=== PATIENT | female | born 2000 | race Caucasian/White ===

== ENCOUNTER → 2021-09-16 10:59 | Outpatient (BNVA) | payer BC, MEDICAID, SELFPAY | PROVIDERS: PCP Family Medicine; Visit Provider Family Medicine | DX: Z51.81 Encounter for therapeutic drug level monitoring (principal); Z68.42 Body mass index [BMI] 45.0-49.9, adult; Z83.3 Family history of diabetes mellitus; Z13.1 Encounter for screening for diabetes mellitus; R03.0 Elevated blood-pressure reading, without diagnosis of hypertension; F31.9 Bipolar disorder, unspecified | CPT/HCPCS: 80053; 80061; 83036; 84443 ==

== ENCOUNTER → 2021-10-29 10:27 | Outpatient (BNVA) | payer BC, MEDICAID, SELFPAY | PROVIDERS: PCP Family Medicine; Visit Provider Emergency Medicine | DX: Z32.02 Encounter for pregnancy test, result negative (principal); M43.6 Torticollis | CPT/HCPCS: 81025 ==

== ENCOUNTER → 2021-12-07 11:20 | Outpatient (BNVA) | payer BC, MEDICAID, SELFPAY | PROVIDERS: PCP Family Medicine; Visit Provider Family Medicine | DX: M54.2 Cervicalgia (principal); G89.29 Other chronic pain; F31.9 Bipolar disorder, unspecified; F51.01 Primary insomnia; J45.990 Exercise induced bronchospasm | CPT/HCPCS: 72040 ==

== ENCOUNTER 2022-09-09 09:45 | Outpatient (CLI) | payer BC, MEDICAID, SELFPAY ==
--- NOTE | 2022-09-09 10:00 | CT_ITS ---
WS: [id number] CT SINUSES TECHNIQUE: Noncontrast CT of the paranasal sinuses with coronal and sagittal reformatted images. CLINICAL INFORMATION: recurrent sinusitis COMPARISON: None. DLP: 363.[address] scans at [facility] use at least one of these dose optimization techniques: automated e xposure control; mA and/or kV adjustment per patient size (includes targeted exams where dose is matc hed to clinical indication); or iterative reconstruction. FINDINGS: Mild RIGHT to LEFT nasal septal deviation measuring 3 mm. Small leftward directed spur. Retention cys ts or polyps in the RIGHT maxillary sinus the largest 2.1 x 1.5 cm. Mild mucosal thickening LEFT maxi llary sinus with a tiny retention cyst. Frontal sinuses are well aerated. Ethmoid air cells well aera adán. Frontal ethmoidal recesses are patent. Sphenoid sinuses are patent. Sphenoid ostia are patent. Mastoid air cells well aerated. Normal posterior nasopharynx. Normal parapharyngeal fat. CT/CT sinus wo con* [id number] IMPRESSION: 1. Mild RIGHT to LEFT nasal septal deviation measuring 3 mm. 2. Retention cysts or polyps in the RIGHT maxillary sinus largest measuring 2. 1x 1.5 CM. 3. Trace mucosal thickening LEFT maxillary sinus with small retention cyst or polyp measuring 8 mm. 4. Paranasal sinuses are otherwise well aerated. 5. Mastoid air cells well aerated. 6. No other remarkable findings.
== END 2022-09-09 09:46 | disposition home or self-care (01) ==
PROVIDERS: PCP Family Medicine; Visit Provider Family Medicine
DX: J32.9 Chronic sinusitis, unspecified (principal); J34.2 Deviated nasal septum
CPT/HCPCS: 70486

== ENCOUNTER → 2022-10-19 08:05 | Outpatient (BNVA) | payer BC, MEDICAID, SELFPAY | PROVIDERS: PCP Family Medicine; Referring Provider Nurse Practitioner; Visit Provider Podiatrist Foot & Ankle Surgery | DX: S93.602A Unspecified sprain of left foot, initial encounter (principal); W22.8XXA Striking against or struck by other objects, initial encounter | CPT/HCPCS: 73630 ==

== ENCOUNTER 2022-10-19 10:44 | Outpatient (CLI) | payer BC, MEDICAID, SELFPAY | END 2022-10-19 10:45 | disposition home or self-care (01) | LOC: SPT 10:45 | PROVIDERS: PCP Family Medicine; Visit Provider Podiatrist Foot & Ankle Surgery | DX: Z46.89 Encounter for fitting and adjustment of other specified devices (principal); S93.402D Sprain of unspecified ligament of left ankle, subsequent encounter; X58.XXXD Exposure to other specified factors, subsequent encounter | CPT/HCPCS: 97760; L4361 ==

== ENCOUNTER 2022-11-23 07:50 | Outpatient (CLI) | payer BC, MEDICAID, SELFPAY ==
--- NOTE | 2022-11-23 08:00 | MR_ITS ---
WS: [id number] EXAMINATION: MR ankle LT wo con* [id number] ORDER DATE: 11/23/2022 8:07 AM COMPARISON: None. HISTORY: Left ankle pain TECHNIQUE: Axial proton density fat sat, axial T1, sagittal proton density, sagittal STIR, coronal T2 fat sat, and coronal T1 sequences performed. FINDINGS: Plantar calcaneal spurring. Diffuse soft tissue edema lower leg and ankle worse about the medial mall eolus. No acute avulsion fractures. Normal talar dome. No evidence of avascular necrosis. Palpable ma rker overlying the medial malleolus. Deltoid ligament appears intact. Small amount of tenosynovitis in the underlying tibialis posterior, flexor digitorum longus, flexor h allucis longus. Extensor compartment tendons are intact. Trace tenosynovitis tibialis anterior. Tenos ynovitis along the peroneal tendon sheath. Splint tear involving the peroneal brevis. Tiny ankle effusion. Distal Achilles is normal. Trace fluid in the retrocalcaneal bursa. Normal talus and calcaneus. Normal talocalcaneal articulation. Normal cuboid. Normal talonavicular articulation. ATFL appears intact. MR/MR ankle LT wo con* [id number] IMPRESSION: 1. Diffuse soft tissue edema about the ankle worse about the medial malleolus. No underlying avulsion fractures. 2. Split tear involving the peroneal brevis. Tenosynovitis peroneal tendon she ath. 3. Small amount of tenosynovitis involving the flexor compartment tendons. 4. No visualized acute fractures. 5. Plantar calcaneal spurring. 6. No other acute findings.
== END 2022-11-23 07:51 | disposition home or self-care (01) ==
PROVIDERS: PCP Family Medicine; Visit Provider Podiatrist Foot & Ankle Surgery
DX: M77.32 Calcaneal spur, left foot (principal); R60.0 Localized edema; M65.9 Synovitis and tenosynovitis, unspecified
CPT/HCPCS: 73721

== ENCOUNTER 2022-12-09 07:20 | Outpatient (CLI) | payer BC, MEDICAID, SELFPAY ==
--- NOTE | 2022-12-09 07:30 | US_ITS ---
WS: [id number] Gallbladder and right upper quadrant ultrasound, 12/09/2022 Clinical Data: RUQ pain Comparison: None. Findings: The gallbladder shows no sludge or stone. The wall measures 0.2 cm with no pericholecystic fluid. The common bile duct is 0.4 cm and there are no intrahepatic ductal abnormalities. Liver shows no cysts, masses or dilated intrahepatic ducts. The pancreas is not obscured by overlying bowel gas and no cyst, pseudocyst, or evidence of pancreati tis is noted. Right kidney measures 12.3 cm and no cyst, masses or hydronephrosis can be seen. The aorta and inferior vena cava show no vascular abnormalities. US/US gall bladder [id number] Impression: Negative gallbladder and right upper quadrant ultrasound.
== END 2022-12-09 07:21 | disposition home or self-care (01) ==
LOC: RAD 07:20
PROVIDERS: PCP Family Medicine; Visit Provider Family Medicine
DX: R10.11 Right upper quadrant pain (principal)
CPT/HCPCS: 76705

== ENCOUNTER 2023-01-20 11:31 | Outpatient (CLI) | payer BC, MEDICAID, SELFPAY | END 2023-01-20 11:32 | disposition home or self-care (01) | LOC: SPT 11:32 | PROVIDERS: PCP Family Medicine; Visit Provider Podiatrist Foot & Ankle Surgery | DX: Z46.89 Encounter for fitting and adjustment of other specified devices (principal); M25.579 Pain in unspecified ankle and joints of unspecified foot | CPT/HCPCS: 97760; L1902 ==

== ENCOUNTER 2023-04-27 05:50 | Day surgery (SDC) | payer BC, MEDICAID, SELFPAY ==
[2023-04-27] VITALS (15 sets, daily range): BP systolic 121–158; BP diastolic 67–99; PULSE 85–109; RESP 12–22; TEMP 36.1–36.6; O2SAT 93–100; BMI 46.7
[2023-04-27] MEDS: acetaminophen 1,000 MG/100 ML PIGGYBACK 400 MG IV (06:21)
[2023-04-27] MEDS: gabapentin 300 mg Capsule PO (06:21)
[2023-04-27] MEDS: sodium chloride 0.9% 1,000 ML 30 ML IV (06:21)
--- NOTE | 2023-04-27 06:55 | P.HPUD_ITS ---
Surgery/Procedure H&P Update DATE OF PROCEDURE: April 27, 2023 DATE H&P PERFORMED: 04/15/23 H&P UPDATE INFORMATION: I have reviewed H&P completed within last 30 days, I have examined patient prior to procedure, No changes to prior documentation and H&P is in [facility] [place] date indicated PREOP DIAGNOSIS: Left peroneus brevis tear PLANNED PROCEDURE: Operation Date: 04/27/23 07:00 Proposed Procedures p Left ankle peroneus brevis tendon secondary repair 66869 ,S86.312A ,M65.872(Left) - iJm Huerta DPM s tenosynovectomy left ankle peroneus longus tendon 61389(Left) - Jim Huerta DPM
--- NOTE | 2023-04-27 06:55 | W.PM.OPSUD ---
Surgery/Procedure H&P Update DATE OF PROCEDURE: April 27, 2023 DATE H&P PERFORMED: 04/15/23 H&P UPDATE INFORMATION: I have reviewed H&P completed within last 30 days, I have examined patient prior to procedure, No changes to prior documentation and H&P is in [facility] on date indicated PREOP DIAGNOSIS: Left peroneus brevis tear PLANNED PROCEDURE: Operation Date: 04/27/23 07:00 Proposed Procedures p Left ankle peroneus brevis tendon secondary repair 68021 ,S86.312A ,M65.872(Left) - Jim Huerta DPM s tenosynovectomy left ankle peroneus longus tendon 95319(Left) - Jim Huerta DPM
--- NOTE | 2023-04-27 06:56 | P.ANESASSM_ITS ---
Pre-Anesthetic Assessment Height/Weight: Height 1.8 m Weight 151.953 kg Temp Pulse Resp BP Pulse Ox O2 Del Method 97.1 F L 96 17 128/86 100 Room Air 04/27/23 06:11 04/27/23 06:11 04/27/23 06:11 04/27/23 06:11 04/27/23 06:11 04/27/23 06:12 Preop Diagnosis: Left peroneus brevis tear Operation Date: 04/27/23 07:00 Proposed Procedures p Left ankle peroneus brevis tendon secondary repair 72999 ,S86.312A ,M65.872(Left) - Jim Huerta DPM s tenosynovectomy left ankle peroneus longus tendon 53622(Left) - Jim Huerta DPM Familial anesthetic complications: None Was Beta Belen taken within 24 hours: N/A Was Clonidine taken within 24 hours: N/A Last intake: Intake Last Liquid Date 04/26/23 Last Liquid Time 21:00 Last Solid Date 04/26/23 Last Solid Time 17:00 Social No alcohol and No tobacco Exam alert, oriented x 3, clear to auscultation bilaterally and regular rate & rhythm Airway Mallampati: Class III Dentition: full Metabolic Morbid Obesity Anesthetic Plan ASA status: 2 Anesthesia: General Other: pt declined pre-op block Risk of > 500 ml blood loss (7ml/kg in children): No Medications/Allergies Home Medications Medication Instructions Recorded Confirmed Last Taken Type fluticasone propionate 50 1 spray intranasal DAILY 90 days 08/16/22 04/26/23 04/26/23 Rx mcg/actuation nasal #48 grams spray,suspension (Flonase Allergy Relief) hydroxyzine HCl 25 mg tablet 25 mg PO QID PRN itching #30 tabs 10/28/22 04/26/23 04/26/23 Rx albuterol sulfate 90 mcg/actuation 1 inh inhalation QID PRN shortness 12/01/22 04/26/23 Unknown Rx breath activated powder inhaler of breath or wheezing #1 ea (ProAir RespiClick) levocetirizine 5 mg tablet (Xyzal) 5 mg PO DAILY #90 tabs 12/07/22 04/26/23 04/26/23 Rx fluoxetine 40 mg capsule 40 mg PO DAILY #60 caps 01/12/23 04/26/2304/26/23 Rx ASO Brace #1 ea 01/20/23 04/15/23 Unknown Rx budesonide-formoterol HFA 80 2 puff inhalation BID #10.2 grams 02/07/23 04/26/23 04/24/23 Rx mcg-4.5 mcg/actuation aerosol inhaler (Symbicort) liraglutide 0.6 mg/0.1 mL (18 mg/3 1.2 mg (0.2 mL) SUBCUT DAILY 30 02/23/23 04/26/23 04/26/23 Rx mL) subcutaneous pen injector days #9 mL (Victoza 3-Valentino) azelastine 137 mcg (0.1 %) nasal 137 mcg intranasal DAILY 03/25/23 04/26/23 04/26/23 History spray aerosol crutches #1 ea 04/15/23 04/15/23 Unknown Rx Allergies Allergy/AdvReac Type Severity Reaction Status Date / Time amoxicillin [From Augmentin] Allergy ALGY-Hives Verified 04/15/23 08:50 clavulanic acid Allergy ALGY-Hives Verified 04/15/23 08:50 [From Augmentin] clindamycin Allergy ALGY-Hives Verified 04/15/23 08:50 Current Medications Generic Name Dose Route Start Last Admin Trade Name Freq PRN Reason Stop Dose Admin Sodium Chloride 1,000 mls @ 30 mls/hr 04/27/23 06:00 04/27/23 06:21 Sodium Chloride 0.9% IV 04/28/23 05:59 30 mls/hr .Q24H ALVA Administration PFSH Anesthesia Medical History ADHD Allergic reaction Allergic urticaria Bipolar 1 disorder Failed trazodone Chronic sinusitis Surgical History History of nasal surgery Sinus surgery - done by Patricia Family History Family/Other Diabetes Denies family history of CAD (coronary artery disease) Clotting disorder Dementia Hyperlipidemia Psychiatric illness Chronic kidney disease (CKD) Anesthesia complication Bleeding disorder Lung disease Cancer Hypertension Stroke Social History Smoking and tobacco/nicotine status: never used tobacco/nicotine Alcohol intake: never Substance/Drug Use: never Lives independently: Yes Marital status: Single Current occupational status: unemployed Angelina/Adventism: [employer] angelina needs: No Agree to transfusion: Yes Female Reproductive History Spontaneous abortions: No Data Anesthesia Cardiac Studies: No Data to Display
[2023-04-27 07:01] LABS: OR HCG Qualitative Urine Negative (Negative)
[2023-04-27] MEDS: ceFAZolin 3,000 MG in sodium chloride 0.9% (100 ml) 100 ML 200 MG IV (07:10)
[2023-04-27] MEDS: BUPivacaine 0.5% INJ 30 mL INJECTION (07:25)
[2023-04-27] MEDS: BUPivacaine 0.5% INJ 30 mL 20 ML INJECTION (08:16)
--- NOTE | 2023-04-27 08:35 | P.BOP_ITS ---
Date of procedure: 04/27/2023 Surgeon name: Neal BynumPZabrina Stationary Steam Engineer(s) name(s): None Procedure(s) performed: Repair of left peroneus brevis tendon, tenosynovectomy left peroneus longus tendon Description of findings: Split tear peroneus brevis tendon with significant tenosynovitis surrounding peroneus longus Estimated blood loss: 10 cc Tourniquet time: Specimen(s) removed: None Post-operative diagnosis: Peroneus brevis tendon tear
--- NOTE | 2023-04-27 08:37 | P.OP_ITS ---
Operative Report Date of procedure: April 27, 2023 Pre-op diagnosis: Left ankle peroneus brevis tendon tear Post-op diagnosis: Same Post-op findings: Split tear of left ankle peroneus brevis tendon with significant tenosynovitis running the peroneus longus tendon Procedure done: 1. Repair left ankle peroneus brevis tendon tear CPT 25848 2. Tenosynovectomy left ankle peroneus longus tendon CPT 43495 Implants: Tendon wrap from [employer] Surgeon: Jim Huerta DPM Estimated blood loss: 10 cc Complications: None Findings: See above Procedure: Patient is a 22-year-old female that has a history of peroneus brevis tendon tear left ankle. The patient has had the aforementioned chief complaint for some time. Conservative treatment measures have been attempted and the patient has opted for surgical intervention at this time. A lengthy discussion regarding the procedure, including risks and complications has been had with the patient and is noted in the recent clinic note. Written and verbal consent have been obtained. All patient questions have been answered to the patient?s satisfaction. No written or verbal guarantees have been given or implied. The patient has been NPO since midnight. The history has been reviewed and the history and physical is current. The signed consent was confirmed and placed in the patient chart. Patient imaging has been reviewed and is consistent with the diagnosis. Under mild sedation, the patient was brought into the operating room and placed on the table in the supine position. IV antibiotics were given by the anesthesia team as preoperative surgical prophylaxis. General sedation was then performed by the anesthesiateam. A pneumatic tourniquet was then placed about the left thigh. The operative extremity was then prepped and draped in the usual fashion. The extremity was then elevated and exsanguinated before the tourniquet was inflated to 325 mmHg. After inflation, the following procedure was then performed. Attention was directed to the lateral aspect of the left ankle where an 8 cm incision was made overlying the peroneal tendons along the course. Dissection was carried down to the level of the peroneal tendon sheath which was incised. There was noted to be extravasation of tenosynovitis coming from the tendon sheath upon incising. The tendon sheath was opened to evaluate the peroneal tendons. The brevis was identified and was noted to have a split longitudinal tear of roughly 30% of the tendon girth. There is noted to be a significant amount of tenosynovectomy surrounding the peroneus longus tendon. No split tear was noted of the peroneus longus tendon upon inspection. The degenerative portion of the peroneus brevis tendon was excised from the ankle and passed from the operative field. The tenosynovitis surrounding the peroneus longus tendon was excised using #15 blade and passed from the operative field. The remaining portions of the sheath appeared healthy and viable. Attention was directed the peroneus brevis tendon. Using #2 FiberWire this was retubularized in standard fashion. The site was then irrigated with copious amounts of sterile saline. The peroneal tendons were then wrapped with Tenowrap collagen wrap from [employer]. The tendon sheath was then closed using 2-0 Vicryl followed by subcuticular closure with 3-0 Vicryl and skin closure with 3-0 nylon in horizontal mattress fashion. The site was then anesthetized using 0.5% Marcaine plain. The tourniquet was let down and good hyperemic response was noted to all digits of the left foot. Hemostasis was noted to be achieved. The incision site was dressed with Xeroform, 4 x 4 gauze, Kerlix before being placed in a well-padded below the knee posterior splint. The patient tolerated the procedure and anesthesia well and without complication. The patient was transported from the operating room to the recovery room with vital signs stable and vascular status intact to all digits of the left foot. The patient was given both written and verbal instructions to remain nonweightbearing to the operative extremity, to keep dressings/splint clean, dry and intact and to take pain medication as directed. The patient will follow-up in the outpatient setting at their scheduled appointment. The patient was discharged with my personal number and was instructed to call if any questions or issues should arise. They were discharged home once anesthesia criteria was met.
[2023-04-27] MEDS: fentaNYL 50 mcg/mL INJ 2mL IVP (09:14)
--- NOTE | 2023-04-27 09:53 | ANES.PROC ---
Anesthesia Procedures Procedure/Date: 04/27/23 Nerve Block ^: Nerve Block 1: Main Anesthesia: general anesthesia Time Out Performed: Yes Consent: requested by attending/covering physician, from patient, from other, risks and benefits reviewed and patient agrees to proceed Nerve block location: popliteal (L) Anesthesia monitors applied: pulse oximetry, EKG, BP cuff and oxygen Nerve block position: supine Anesthetic Used: ropivicaine 0.5% (30 ml) and with decadron (4 mg) Ultrasound used to: recognize landmarks Nerve Stimulator Used?: No Interscalene/Femoral BLK: 4 stimuplex 21 g needle used for position and inplane approach, visualize local anesthetic spread and no vascular puncture identified Injection: neg aspiration of heme and paresthesia +/- Patient Tolerated Procedure: well and no complications Complications: none
--- NOTE | 2023-04-27 14:16 | ANE.PACU2 ---
Inpatient post-anesthesia follow up: Airway intact: Yes Vital signs: Temperature 97.0 F Pulse Rate 96 Respiratory Rate 17 Blood Pressure 145/82 Pulse Oximetry 95 Oxygen Delivery Me thod Room Air Oxygen Flow Rate 8 Fraction of Inspir ed Oxygen Hydration adequate: Yes Nausea and vomiting: No Pain level: 1 Mental status: Baseline
== END 2023-04-27 10:30 | disposition home or self-care (01) ==
PROVIDERS: PCP Family Medicine; Visit Provider Podiatrist Foot & Ankle Surgery
PROC: (CPT 27659; principal; 2023-04-27 07:00)
PROC: (CPT 27659; 2023-04-27 07:00)
DX: S86.312A Strain of muscle(s) and tendon(s) of peroneal muscle group at lower leg level, left leg, initial encounter (principal); X58.XXXA Exposure to other specified factors, initial encounter
CPT/HCPCS: 27659; 27680; 81025; 84703; C1713; C1762; J0131; J0690; J1100; J2250; J2405; J2704; J2795; J3010; J3490; J3535; J7030

== ENCOUNTER 2023-04-29 05:02 | Emergency (ER) | payer BC, MEDICAID, SELFPAY ==
[2023-04-29 05:10] VITALS: BP 167/84; PULSE 128; RESP 20; TEMP 36.9; O2SAT 100
--- NOTE | 2023-04-29 05:16 | ED_ITS ---
HPI - Fever General: Chief Complaint: Fever Stated Complaint: fever,congestion Time Seen by Provider: 04/29/23 05:03 Source: patient Mode of arrival: ambulatory Limitations: no limitations History of Present Illness: 22-year-old female who states she had an kle surgery 2 days ago he states that overnight she has been having severe sinus pain headaches had a fever 101. She had a lot of nasal congestion states she has had sinus infections in the past this feels similar she had no vomiting no diarrhea denies any pain in her leg. Associated symptoms: Reports headache(s), nasal congestion and sinus pain; Deny abdominal pain, chills, chest pain, diarrhea, nausea or vomiting Review of Systems Const: Denies: fever(s), chills, body aches or change in appetite ENMT: Reports: nasal congestion and sinus pain; Denies: throat pain or dental pain Card: Denies: chest pain Resp: Denies: dyspnea GI: Denies: abdominal pain, nausea, vomiting or diarrhea Musc: Denies: neck pain or back pain Skin/Breast: Denies: rash Neuro: Reports: headache(s) PFSH ED PFSH: Medical History Chronic sinusitis Allergic urticaria ADHD Bipolar 1 disorder Failed trazodone Allergic reaction Surgical History History of nasal surgery Sinus surgery - done by Patricia Family History Family/Other Diabetes Denies family history of CAD (coronary artery disease) Clotting disorder Dementia Hyperlipidemia Psychiatric illness Chronic kidney disease (CKD) Anesthesia complication Bleeding disorder Lung disease Cancer Hypertension Stroke Social History Smoking and tobacco/nicotine status: never used tobacco/nicotine Alcohol intake: never Substance/Drug Use: never Lives independently: Yes Marital status: Single Current occupational status: unemployed Angelina/Adventism: Spiritism Special angelina needs: No Agree to transfusion: Yes Female Reproductive History: Spontaneous abortions: No Physical Exam Const: COMMON NORMALS: no acute distress, patient oriented x3 and healthy appearing HENMT: COMMON NORMALS: normocephalic and atraumatic HEAD & SCALP: normocephalic and atraumatic MOUTH: Normal oral and palatal mucosa present THROAT: posterior oropharynx normal Eye: COMMON NORMALS: Equal, round and reactive pupils present and EOMs intact bilaterally PUPIL: Yes Equal, round and reactive pupils present Neck/C-Spine: COMMON NORMALS: full ROM and supple Chest: COMMONS NORMALS: normal inspection of the chest and normal palpation of entire chest wall Resp: COMMON NORMALS: normal respiratory effort, No retractions, No use of accessory muscles and clear to auscultation bilaterally AUSCULTATION: clear to auscultation bilaterally Cardio: COMMON NORMALS: regular rate, regular rhythm and No murmurs present (Cardio) RATE: regular rate RHYTHM: regular rhythm Extremity: COMMON NORMALS: normal to inspection and full ROM Neuro: COMMON NORMALS: patient oriented x3, moves all extremities and no focal motor deficits Psych: COMMON NORMALS: mental status grossly normal, Normal thought process present and cooperative THOUGHT PROCESS: Normal thought process present Skin: COMMON NORMALS: no rashes or lesions noted and no wounds GENERAL SKIN EXAM: no rashes or lesions noted Course Vital Signs: Vital signs: Vital Signs Temperature 98.4 F 04/29/23 05:10 Pulse Rate 128 H 04/29/23 05:10 Respiratory Rate 20 H 04/29/23 05:10 Blood Pressure 167/84 04/29/23 05:10 Pulse Oximetry 100 04/29/23 05:10 MDM - Fever Medical Decision Making Patient presents here with a likely sinus infection. I did recommend COVID and influenza swabs she refused all swabs. Patient is quite tachycardic here was going to draw blood work and give her IV fluids patient refused IV and blood work as well. She states that is what my sinusitis is treated and nothing else we will prescribe her Keflex because this time if she worsens she is return. No radiology studies performed this visit Discharge Plan Discharge Patient Disposition: Home Clinical Impression: Sinusitis Condition: Stable Prescriptions: New cephalexin 500 mg capsule 500 mg PO TID 7 Days Qty: 21 0RF No Action fluoxetine 40 mg capsule 40 mg PO DAILY Qty: 60 1RF (DME) ASO Brace See Rx Instructions .Route .MEDSUPPLY Qty: 1 0RF Rx Instructions: As directed fluticasone propionate [Flonase Allergy Relief] 50 mcg/actuation spray,suspension 1 spray intranasal DAILY 90 Days Qty: 48 0RF Rx Instructions: administer into each nostril ProAir RespiClick 90 mcg/actuation aerosol powdr breath activated 1 inh inhalation QID PRN (Reason: shortness of breath or wheezing) Qty: 1 3RF azelastine 137 mcg (0.1 %) aerosol,spray 137 mcg intranasal DAILY (DME) crutches See Rx Instructions .Route .MEDSUPPLY Qty: 1 0RF Rx Instructions: As directed hydroxyzine HCl 25 mg tablet 25 mg PO QID PRN (Reason: itching) Qty: 30 0RF levocetirizine [Xyzal] 5 mg tablet 5 mg PO DAILY Qty: 90 0RF budesonide-formoterol [Symbicort] 80-4.5 mcg/actuation HFA aerosol inhaler 2 puff inhalation BID Qty: 10.2 1RF Victoza 3-Valentino 0.6 mg/0.1 mL (18 mg/3 mL) pen injector 1.2 mg SUBCUT DAILY 30 Days Qty: 9 4RF ondansetron HCl 4 mg tablet 4 mg PO Q6H PRN (Reason: nausea and vomiting) Qty: 16 0RF hydrocodone-acetaminophen 5-325 mg tablet 1 tab PO Q6H PRN (Reason: pain) Qty: 28 0RF Rx Instructions: Take one tablet by mouth every 6 hours as needed for pain Discharge Orders: Discharge ED (Routine); Ordered 04/29/23 Ordered By: Delfin Mcallister Referrals: Richy Walker MD [Primary Care Provider] - 1-3 days Discharge Diet: Advance as tolerated Discharge Activity: Resume usual activity Patient Instructions: Sinusitis (ED) Coding Level of Care Code ED Accounts Receivable Coordinator for Sanjeev Lobo
[2023-04-29] MEDS: cephALEXin 500 mg Capsule PO (05:21)
[2023-04-29] MEDS: HYDROcodone-acetaminophen 5-325 mg Tablet 1 TAB PO (05:22)
[2023-04-29] MEDS: dexamethasone 10 mg/mL INJ IM (05:23)
[2023-04-29 05:42] VITALS: BP 135/83; PULSE 112; O2SAT 98
== END 2023-04-29 05:42 | disposition home or self-care (01) ==
PROVIDERS: Emergency Provider Emergency Medicine; PCP Family Medicine
DX: J32.9 Chronic sinusitis, unspecified (principal)
CPT/HCPCS: 96372; 99284; J1100

== ENCOUNTER → 2023-08-26 13:01 | Outpatient (BNVA) | payer BC, MEDICAID, SELFPAY | PROVIDERS: PCP Family Medicine; Visit Provider Emergency Medicine | DX: J02.9 Acute pharyngitis, unspecified (principal) | CPT/HCPCS: 87071; 87880 ==

== ENCOUNTER → 2023-11-29 15:35 | Outpatient (BNVA) | payer BC, MEDICAID, SELFPAY | PROVIDERS: PCP Family Medicine Adult Medicine; Visit Provider Orthopaedic Surgery | DX: M54.2 Cervicalgia (principal); M25.511 Pain in right shoulder; M25.512 Pain in left shoulder | CPT/HCPCS: 72050; 73030 ==

== ENCOUNTER → 2024-02-07 08:11 | Outpatient (BNVA) | payer MEDICARE, OTHER, BC, MEDICAID, SELFPAY | PROVIDERS: PCP Family Medicine Adult Medicine; Visit Provider Orthopaedic Surgery | DX: M54.50 Low back pain, unspecified (principal); M54.2 Cervicalgia; G89.29 Other chronic pain | CPT/HCPCS: 72050; 72110; 99213 ==

== ENCOUNTER 2024-03-28 06:51 | Outpatient (CLI) | payer BC, MEDICAID, SELFPAY ==
--- NOTE | 2024-03-28 07:15 | MR_ITS ---
WS: [id number] MRI CERVICAL SPINE NONCONTRAST TECHNIQUE: Sagittal T1, T2 and STIR imaging. Axial T2, gradient, and fiesta imaging. CLINICAL INFORMATION: M54.2 - Cervicalgia COMPARISON: None. FINDINGS: Straightening with slight reversal normal cervical lordosis. Shallow central protrusion C6-7 with a s mall annular fissure and indentation on the cervical cord with mild to moderate central canal stenosi s. C2-C3: Normal. C3-C4: Mild facet arthropathy. C4-C5: Mild disc osteophyte ridging. Mild LEFT greater than RIGHT bony foraminal narrowing. Spinal ca nal is patent. Mild facet arthropathy. C5-C6: Tiny central protrusion. Mild central canal stenosis. Mild RIGHT and no significant LEFT loni inal narrowing. Mild facet arthropathy. C6-C7: Central disc protrusion with indentation and slight flattening of the cervical cord with mild to moderate central canal stenosis. Mild bilateral bony foraminal narrowing. Mild facet arthropathy. C7-T1: Shallow central protrusion. Spinal canal and foramen are patent. Mild facet arthropathy. Visualized brain stem structures: Normal. Prevertebral soft tissues: Normal. MR/MR cervical spin wo con* [id number] IMPRESSION: 1. Straightening with slight reversal the normal cervical lordosis. 2. Central disc protrusion C6-7 with mild to moderate central canal stenosis a nd slight indentation on the cervical cord. 3. Mild bilateral C6-7 bony foraminal narrowing RIGHT greater than LEFT. 4. Small central protrusion C7-T1 with slight effacement of the ventral thecal sac. 5. Mild RIGHT C5-6 bony foraminal narrowing. Tiny central protrusion at this l evel with mild central canal stenosis.
== END 2024-03-28 06:52 | disposition home or self-care (01) ==
LOC: RAD 06:52
PROVIDERS: PCP Family Medicine Adult Medicine; Visit Provider Orthopaedic Surgery
DX: M50.20 Other cervical disc displacement, unspecified cervical region (principal); M99.61 Osseous and subluxation stenosis of intervertebral foramina of cervical region
CPT/HCPCS: 72141

== ENCOUNTER 2024-05-24 14:43 | Outpatient (CLI) | payer BC, MEDICAID, SELFPAY | END 2024-05-24 14:44 | disposition home or self-care (01) | LOC: SLEEP 14:44 | PROVIDERS: PCP Family Medicine Adult Medicine; Visit Provider Specialist | DX: G47.33 Obstructive sleep apnea (adult) (pediatric) (principal) | CPT/HCPCS: G0399 ==

== ENCOUNTER → 2024-06-05 15:14 | Outpatient (BNVA) | payer BC, MEDICAID, SELFPAY | PROVIDERS: Visit Provider Family Medicine | DX: J02.9 Acute pharyngitis, unspecified (principal) | CPT/HCPCS: 87071; 87880 ==

== ENCOUNTER → 2024-08-02 14:32 | Outpatient (BNVA) | payer BC, MEDICAID, SELFPAY | PROVIDERS: PCP Family Medicine; Visit Provider Orthopaedic Surgery | DX: M54.50 Low back pain, unspecified (principal); M54.6 Pain in thoracic spine | CPT/HCPCS: 72072; 72110 ==

== ENCOUNTER 2024-09-18 06:06 | Outpatient (CLI) | payer BC, MEDICAID, SELFPAY ==
--- NOTE | 2024-09-18 06:30 | MR_ITS ---
WS: [id number] MRI LUMBAR SPINE NONCONTRAST HISTORY: low back pain COMPARISON: None available. TECHNIQUE: Sagittal and axial multisequence imaging is submitted. C6-7 small central disc protrusion contacts the ventral cervical cord. Normal lumbar alignment with no compression fractures or marrow edema. Minimal disc space narrowing and desiccation. Schmorl's nodes at T12-L3. No acute fracture or marrow edema. Conus terminates normally at L1-2 disc level. L1-L2: Small central disc protrusion contacts the ventral thecal sac. Mild ligamentum flavum and facet arthritis. Mild central, subarticular recess and foraminal stenosis. L2-L3: Diffuse annular disc bulging with mild effacement of the ventral thecal sac. Minimal foraminal narrowing. L3-L4: Mild annular disc bulging. Shallow RIGHT foraminal disc protrusion. Moderate ligamentum flavum and facet arthritis. Mild bilateral subarticular recess and foraminal stenosis. L4-L5: Moderate ligamentum flavum and facet arthritis. No significant stenosis. L5-S1: Facet joint arthritis. Small central disc protrusion. Disc protrusion slightly contacts the LEFT S1 nerve root. Very slight central with bilateral subarticular recess and foraminal narrowing. MR/MR lumbar spine wo con* [id number] IMPRESSION: 1. No high-grade central or foraminal stenosis. 2. Multilevel facet joint arthritis and ligamentum flavum hypertrophy. 3. L1-2: Small central disc protrusion contacts the ventral thecal sac. Mild c entral, subarticular recess and foraminal stenosis. 4. L5-S1: Small central disc protrusion slightly contacts the LEFT S1 nerve ro ot. Very mild central, bilateral subarticular recess and foraminal stenosis. 5. L3-4: Shallow RIGHT foraminal disc protrusion. Mild foraminal and subarticu lar recess narrowing. 6. C6-7: Small central disc protrusion.
== END 2024-09-18 06:07 | disposition home or self-care (01) ==
PROVIDERS: PCP Family Medicine; Visit Provider Orthopaedic Surgery
DX: M47.896 Other spondylosis, lumbar region (principal); M24.28 Disorder of ligament, vertebrae; M51.26 Other intervertebral disc displacement, lumbar region; M48.061 Spinal stenosis, lumbar region without neurogenic claudication; M51.27 Other intervertebral disc displacement, lumbosacral region; M50.323 Other cervical disc degeneration at C6-C7 level; M51.44 Schmorl's nodes, thoracic region; M47.897 Other spondylosis, lumbosacral region
CPT/HCPCS: 72148

== ENCOUNTER → 2024-10-30 09:18 | Outpatient (BNVA) | payer BC, MEDICAID, SELFPAY | PROVIDERS: PCP Family Medicine; Visit Provider Orthopaedic Surgery | DX: M25.511 Pain in right shoulder (principal); G89.29 Other chronic pain | CPT/HCPCS: 73030 ==

== ENCOUNTER 2024-11-14 10:29 | Outpatient (CLI) | payer MEDICAID, SELFPAY ==
--- NOTE | 2024-11-14 11:00 | MR_ITS ---
WS: [id number] MRI RIGHT SHOULDER HISTORY: Right shoulder pain COMPARISON: None available. TECHNIQUE: Multiplanar sequences of the shoulder joint are submitted. No significant AC joint disease. No subacromial impingement. No fluid in the subacromial or subdeltoid bursa. No os acromion. Biceps tendon noted in the bicipital groove. Very poor definition of the biceps tendon due to body habitus. No rotator cuff muscle atrophy or edema. No tears are identified. No muscle retraction. No joint effusion. Minimal subchondral cystic changes along the posterior lateral humeral head. Labrum cannot be well visualized due to body habitus. Lobulated paralabral cyst associated with the spinoglenoid notch. Largest component measures 10 mm and there is a small tract extending towards the posterior inferior labrum. The labrum is not well enough visualized to confirm there is a labral tear. MR/MR shoulder RT wo con* [id number] IMPRESSION: 1. No shoulder abnormality identified. 2. No rotator cuff tendon tear. 3. Paralabral cyst measures 10 mm. There is a small fluid tract extending towa rds the posterior inferior labrum. Suspected labral tear. Quality of this exam is not sufficient to identify the labrum and confirmed labral tear.
--- NOTE | 2024-11-14 11:45 | MR_ITS ---
WS: [id number] MRI LEFT SHOULDER HISTORY: M25.512 - Pain in left shoulder COMPARISON: None available. TECHNIQUE: Multiplanar sequences of the shoulder joint are submitted. Study is compromised by body habitus. Mild AC joint arthritis. No subacromial subdeltoid fluid. No significant subacromial impingement. No os acromion. Normal position of the biceps tendon. Mild narrowing of the glenohumeral joint. Small subchondral cystic changes in the posterior lateral humeral head. No rotator cuff muscle atrophy or edema. No tendon tear or retraction. Quality of this examination is not sufficient to evaluate the labrum. Grossly no labral abnormality. MR/MR shoulder LT wo con* [id number] IMPRESSION: 1. Quality this examination is compromised by body habitus. 2. No rotator cuff tears are identified. No muscle atrophy or edema. 3. Mild AC joint arthritis. 4. Subchondral cystic changes posterior lateral humeral head.
== END 2024-11-14 10:30 | disposition home or self-care (01) ==
PROVIDERS: PCP Family Medicine; Visit Provider Orthopaedic Surgery
DX: M25.511 Pain in right shoulder (principal); M25.512 Pain in left shoulder
CPT/HCPCS: 73221

== ENCOUNTER → 2025-01-23 08:18 | Outpatient (BNVA) | payer MEDICAID, SELFPAY | PROVIDERS: PCP Family Medicine; Visit Provider Family Medicine | DX: Z79.899 Other long term (current) drug therapy (principal); E66.01 Morbid (severe) obesity due to excess calories; Z68.42 Body mass index [BMI] 45.0-49.9, adult; K21.9 Gastro-esophageal reflux disease without esophagitis; F32.1 Major depressive disorder, single episode, moderate | CPT/HCPCS: 80053; 80061; 82607; 83036; 84439; 84443; 85025 ==

== ENCOUNTER 2025-02-13 14:51 | Outpatient (CLI) | payer MEDICAID, SELFPAY ==
--- NOTE | 2025-02-13 14:58 | XRR_ITS ---
PROCEDURE INFORMATION: Exam: XR Left Ankle Exam date and time: 02/13/2025 3:10 PM Age: 24 years old Clinical indication: Injury or trauma; Fall; Blunt trauma; Prior surgery; Surgery date: 6+ months; Surgery type: Tendon repair on left ankle 2022; Additional info: Injury left ankle TECHNIQUE: Imaging protocol: Radiologic exam of the left ankle. Views: 3 or more views. COMPARISON: MR ankle LT wo con* [id number] 11/23/2022 8:22 AM FINDINGS: Bones/joints: No acute fractures. Plantar calcaneal spur. No dislocations. No significant osseous lesions. Soft tissue swelling about the lateral malleolus. Soft tissues: See Bones/joints finding. XR/XR ankle LT min 3V* [id number] IMPRESSION: 1. No acute fractures or malalignment. 2. Soft tissue swelling about the lateral malleolus.
--- NOTE | 2025-02-13 14:58 | XRR_ITS ---
PROCEDURE INFORMATION: Exam: XR Left Foot Exam date and time: 02/13/2025 3:10 PM Age: 24 years old Clinical indication: Injury or trauma; Blunt trauma; Prior surgery; Surgery date: 6+ months; Surgery type: Tendon repair on left ankle 2022; Fall on left foot today, limited mobility, pain in ankle and bruising/swelling; Additional info: Injury left foot TECHNIQUE: Imaging protocol: Radiologic exam of the left foot. Views: 3 or more views. COMPARISON: CR XR foot LT min 3V* [id number] 10/19/2022 8:07 AM FINDINGS: Bones/joints: No acute fractures. Plantar calcaneal spur. No dislocations. No significant osseous lesions. Soft tissues: No significant soft tissue abnormalities. XR/XR foot LT min 3V* [id number] IMPRESSION: No acute fractures or malalignment.
== END 2025-02-13 14:52 | disposition home or self-care (01) ==
LOC: RAD 14:54
PROVIDERS: PCP Family Medicine; Visit Provider Nurse Practitioner
DX: S99.922A Unspecified injury of left foot, initial encounter (principal); S99.912A Unspecified injury of left ankle, initial encounter; X58.XXXA Exposure to other specified factors, initial encounter; M25.472 Effusion, left ankle
CPT/HCPCS: 73610; 73630

== ENCOUNTER 2025-02-14 10:56 | Emergency (ER) | payer MEDICAID, SELFPAY ==
--- OUTSIDE RECORDS SUMMARY | 2021-12-16 03:00 | XMS_ITS | Continuity of Care Document ---
Author Organization [facility] Address [address] [id number] [address] Phone Care Team Providers Care Hazardous Materials Analyst Name Role Phone Mendoza Goddard DDS Unavailable Unavailabl e Medications Medication Instructions Dosage Effective Dates (start - stop) Status Comments chlorhexidine gluconate 0.12 % mouthwash place 15 milliliter by mouth (after meals), swish one minute then spit out as needed - Active Start on 3rd day after surgery, use salt/water first 3 days. clonazepam 1 mg tablet Take 1 (one) tablet 1 (one) hour prior to procedure. - Active ibuprofen 800 mg tablet take 1 tablet by oral route 3 times every day with food 800 MG - Active Anti-inflammat ory caused by Oral Surgery, Do not used more than 3000mg per day. hydrocodone 5 mg-acetaminophen 325 mg tablet take 1 tablet by oral route every 6 hours as needed for pain as needed 1.00 tablet - Active Procedures Procedure Date Non-Intravenous Conscious Sedation Removal Of Impacted Tooth Soft Tissue EDR Approval Note Non-Intravenous Conscious Sedation Surgical Removal Of Erupted Tooth Requir ing Elevat Surgical Removal Of Erupted Tooth Requir ing Elevat Surgical Removal Of Erupted Tooth Requir ing Elevat Surgical Removal Of Erupted Tooth Requir ing Elevat EDR Approval Note Consultation Diagnostic Service Provided By [place] EDR Approval Note Advance Directives Directive Yes / No Effective Date File Name No Information Encounters Encounter Description Practice Location Reason(s) For Visit Diagnoses Date Provider Providers Copied on Encounter [facility], [id number] [place], [place], [id number], [place] tel:[phone] [facility] No Information Rupesh Donaldson. [address] [place] [address], [address], [place]. tel:[phone] Referring Provider: Mendoza Goddard, [address] [place] [address], [address]. tel:[phone] [facility], [id number], [id number], [place] tel:[phone] [facility] No Information Rupesh Donaldson. [address] [place] [address], [address], [place]. tel:[phone] [facility], [id number], [id number], [place] tel:[phone] [facility] No Information Rupesh Donaldson. [address] [place] [address], [address], [place]. tel:[phone] Referring Provider: Mendoza Goddard, [address] [place] [address], [address]. tel:[phone] [facility], [id number], [id number], [place] tel:[phone] [facility] No Information Rupesh Donaldson. [address] [place] [address], [address], [place]. tel:[phone] [facility], [id number], [id number], tel:[phone] [facility] No Information Rupesh Donaldson. [address] [place] [address], [address], . tel:[phone] Referring Provider: Mendoza Goddard, [address] [place] [address], [address]. tel:[phone] Family History Family Member Type Diagnosis Age At Onset No Information Payers Payer name Insurance type Covered constitution party ID Grant byers(s) [id number] Social History Type Description Quantity Date Captured Comments Sex Female Smoking Status No Information Chief Complaint And Reason For Visit No Information Reason For Referral Reason For Referral No Information History Of Present Illness Encounter Date Complaint History Of Prese nt Illness No Information Functional Status Date Functional Assessmen t No Information Instructions Date Instruction Additional Infor mation No Information Assessments Type Assessment Date No Information Patient Care Teams Name Effective Dates (start - stop) Status Members No Information
--- OUTSIDE RECORDS SUMMARY | 2025-02-07 09:00 | XMS_ITS | Encounter Summary ---
Author Organization [facility] Address [address] [place] [address] Care Team Providers Care Elevator Constructor Name Role Phone Unavailable Primary Care Provider Unavailabl e Reason for Referral * Eval and Treat (Routine) - Open Specialty Diagnoses / Procedures Referred By Dick min Referred To Contact Pain Management Diagnoses Cervical radiculopathy Lumbar radiculopathy Procedures ND OFFICE/OUTPATIENT ESTABLISHED MOD MDM 30 MIN ND OFFICE/OUTPATIENT NEW MODERATE MDM 45 MINUTES Vish Be FNP [address] [place] [address] Phone: tel: fax: [facility] [address] [place] [address] Phone: tel: fax: Referral ID Status Reason Start Date Expiration Date Visits Re quested Visits Authorized [id number] Open 02/07/2025 02/07/2026 1 1 Reason for Visit * Reason Comments Shoulder Pain * Eval and Treat (Routine) - Closed Specialty Diagnoses / Procedures Referred By Dick min Referred To Contact Orthopedic Surgery Diagnoses Pain in right shoulder Pain in left shoulder [place], [address] [place] [address] Phone: tel: fax: Vish Be FNP [address] [place] [address] Phone: tel: fax: Referral ID Status Reason Start Date Expiration Date Visits Re quested Visits Authorized [id number] Closed 01/17/2025 02/17/2026 1 1 Encounter Details Date Type Department Care Team (Latest Contact Info) Description 02/07/2025 9:00 AM CDT Office Visit [facility] Orthopedics - Orthopedic [facility] [address] [place] [phone] Vish Be FNP [address] [place] [address] Cervical radiculopathy (Primary Dx); Lumbar radiculopathy Social History Tobacco Use Types Packs/Day Years Used Date Smoking Tobacco: Never Assessed Comments Unknown Sex and Gender Information Value Date Recorded Sex Assigned at Not on file 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 Gender Identity Not on file Sexual Orientation Not on file documented as of this encounter Last Filed Vital Signs Vital Sign Reading Time Taken Comments Blood Pressure 132/86 02/07/2025 12:20 PM CDT Pulse - - Temperature - - Respiratory Rate - - Oxygen Saturation - - Inhaled Oxygen Concentration - - Weight 158.8 kg (350 lb) 02/07/2025 12:20 PM CDT Height 180.3 cm (5' 11 ) 02/07/2025 12:20 PM CDT Body Mass Index 48.82 02/07/2025 12:20 PM CDT documented in this encounter Progress Notes * Vish Be FNP - 02/07/2025 12:31 PM CDT Louise Woodruff [id number] 2000 Provider: VINEET [place] REFERRING PROVIDER [facility], [address] [place] [address] CHIEF COMPLAINT Left shoulder pain HISTORY OF PRESENT ILLNESS Louise Woodruff is a 24 y.o. female who is right-hand dominant and presents the office today as anew patient. She has a chronic 2-year history of ongoing bilateral shoulder pain and neck pain and lumbar back pain. She states there is no accident or injury associated with it and her pain has beenworsening slowly over time and is a sharp dull achy throbbing sensation that is a 9/10 at best and a 10/10 at worst. Nothing currently makes her pain better and laying or standing or sitting or walking makes her pain worse. She endorses night pain clicking popping and numbness and tingling. She hasbeen seen by multiple different doctors at [facility] in [place] which she has trialed mu ltiple different corticosteroid injections as well as 24 weeks of physical therapy all of which failed to alleviate her pain. She also takes meloxicam as well as Flexeril which sometimes helps. Her biggest difficulties is daily tasks such as brushing her hair or lifting or moving. PERTINENT PAST MEDICAL & SURGICAL HISTORY, MEDICATIONS: BMI 50, otherwise no past medical history on file SOCIAL HISTORY: She is a non-smoker, nondiabetic, and does not take any blood thinners. She currently does not workand is applying for disability. There is no problem list on file for this patient. No past medical history on file. No past surgical history on file. No family history on file. Social History Tobacco Use Smoking status: Not on file Smokeless tobacco: Not on file Substance Use Topics Alcohol use: Not on file MEDICATIONS: Current Outpatient Medications on File Prior to Visit Medication Sig Dispense Refill azelastine (ASTELIN) 137 mcg/actuation nasal spray Use 2 spray(s) in each nostril once daily 30 mL 0 ALBUTEROL SULFATE INHALATION Take by inhalation. citalopram (CeleXA) 20 mg tablet Take 20 mg by mouth daily at bedtime. fluticasone propionate (FLONASE) 50 mcg/spray [place], Suspension nasal inhaler Administer 2 Sprays in each nostril daily. hydrOXYzine HCL (ATARAX) 25 mg tablet Take 25 mg by mouth 3 times daily as needed for Itching. levocetirizine (XYZAL) 5 mg tablet Take 5 mg by mouth late in the day. meloxicam (MOBIC) 15 mg tablet Take 15 mg by mouth daily. montelukast sodium (MONTELUKAST ORAL) Take by mouth. omeprazole (PriLOSEC) 40 mg Capsule, Delayed Release(E.C.) Take 40 mg by mouth daily. QUEtiapine (SEROquel) 50 mg tablet Take 50 mg by mouth 2 times daily. No current facility-administered medications on file prior to visit. ALLERGIES: Allergies Allergen Reactions Amoxicillin Unknown Amoxicillin-Pot Clavulanate Unknown Ddavp (Refrigerated) Unknown REVIEW OF SYSTEMS: Constitutional: Negative for fevers, chills, sweats, fatigue, malaise, anorexia, or weight loss. HEENT: Negative for hoarseness or visual disturbance. Hematological and Lymphatic: Negative for swollen glands or abnormal bleeding/clotting. Respiratory: Negative for cough, shortness of breath, or wheezing. Cardiovascular: Negative for chest pain or dyspnea on exertion. Gastrointestinal: Negative for abdominal pain or black or bloody stools. Genito-Urinary: Negative for dysuria, trouble voiding, or hematuria. Musculoskeletal: Negative for back pain, + joint pain/swelling. Skin: Negative for skin rashes or unusual skin lesions. Neurological: Negative for TIA or stroke symptoms. Psychological: Negative for memory loss or acute mental status change. PHYSICAL EXAMINATION: GENERAL: The patient is alert, oriented, and pleasant to interact with NEURO: sensation and motor intact to median, ulnar, axillary, and radial nerve distribution SKIN: no significant abrasions or lesions over the area examined, no prior surgical incisions VESSELS: warm and well perfused upper extremity, radial pulse intact MUSCULOSKELETAL: Right shoulder Examination: Cervical Motion: Full Scapulothoracic Rhythm: Normal Active ROM: 160 elevation, 70 external rotation, L5 internal rotation Strength Testing: Supraspinatus: 4/5 Infraspinatus: 4/5 Subscapularis: 4/5 Teres minor: 5/5 Rotator Cuff Tests: Slightly positive rotator cuff testing, positive biceps testing Crepitus: - AC Joint TTP: None with negative cross body adduction test Biceps/Labrum: Groove TTP + Brighton's:+ Speed's: + On her left shoulder she also has 160 degrees of active forward flexion, 70 degrees of external rotation, and internal rotation to L1. 4/5 strength testing on rotator cuff with positive biceps testing. IMAGING Dr. Parsons and I personally reviewed and interpreted the shoulder left radiographs from February 07, 2025: No os acromiale. No acute dislocations or fractures noted. There is mild glenohumeral and AC joint changes. MRI shoulder left without contrast dated 11/14/2024 shows no full or partial- thickness tears of any of the rotator cuff tendons. Cystic changes of her lateral humeral head. Negative for any significant joint changes. This MRI is of poor quality. MRI shoulder right without contrast dated 11/14/2024 also shows no full or partial-thickness tears of any of her rotator cuff tendons. Negative for any significant joint changes. MRI cervical spine without contrast dated 03/28/2024 report was reviewed, no imaging available: C3-4 mild facet arthropathy, C4-5 mild disc osteophyte ridging, mild bilateral neuroforaminal narrowing, mild facet arthropathy. C5-6 small central disc protrusion present, mild central canal stenosis, mild right neuroforaminal narrowing with mild facet arthropathy. C6-7 central disc protrusion with slight flattening of the cervical cord with mild to moderate central canal narrowing. Mild bilateral neuroforaminal narrowing. Mild facet arthropathy. IMPRESSION/REPORT/PLAN 1. 24 y.o. female with chronic bilateral shoulder, neck, and lumbar spine pain We had a lengthy discussion regarding the diagnosis, natural history, and treatment options. We discussed both non-operative and operative treatments. Potential non-operative treatment options include, but are not limited to: rest, ice, activity modification, anti-inflammatory medication, physical therapy, and/or injections. I had a good discussion with her today and I did share with her I think the worst of her symptoms is actually related to her neck and her lower back as she is exhibiting a lot of radicular symptoms such as numbness and tingling that extends into her hands as I am evaluating her shoulders. She does have good motion within her shoulders and I did share with her they are both free of any rotator cuff tears or any significant arthritic changes. Given the cervical spine changes present on her MRI I do think a lot of the pain and symptoms she is having is related to her neck as well as her lumbar spine. We are going to refer her to pain management where they can addressboth of these at the same time more than likely with epidural steroid injections to help alleviate some of the pain she is having within her neck that is radiating into her shoulder blades, shoulder,and down her arms into her hands. She was appreciative of today's visit and all her questions and concerns were addressed today. Follow-up as needed. She was very pleased with this plan and all questions were answered. She was provided with our contact information and instructed to give us a call should She have any additional questions or concerns. This note was written with the assistance of [employer] dictation software. Every effort is made to proofread the documentation. Any errors in spelling, syntax, or meaning should be interpreted in the context of the broader note. documented in this encounter Miscellaneous Notes * Patient Instructions - Sofia Solano - 02/07/2025 12:49 PM CDT Images from the original note were not included. Thank you for choosing [facility] to serve your orthopedic needs. If you have any questions regarding your office visit today please do not hesitate to call our office at [phone] toll free at . When Care Can't Wait, [facility] Has Options Each Year, [facility] serve thousands of people across [place] in our emergency rooms. Many have very serious illnesses and injuries--but not every situation requires a trip to the ER. With [facility], youhave options based on how urgent and severe the problem is, And now, [place] has walk-in orthopedic care, making it even easier to get the right care for your needs. ORTHO WALK-IN CLINIC [facility] Orthopedic Walk-in Care For minor, orthopedic concerns that might require x-rays, including: Tys-rwyn-coxlctvppbs injuries occurring in the past 2 weeks not seen by primary care provider Soft tissue injuries (sprain or strain) in arms or legs Broken or fractures bones in arms or legs not visible through the skin Sports Injuries not including concussion management [place] wait time and about the same cost as seeing your doctor; specialty co- pay may apply URGENT CARE [facility] Urgent Care For more serious illnesses and injuries, including: Neck, back and spine injuries Coughs, colds and flu Sore throats Ear problems Urinary discomfort Minor skin conditions Minor injuries Minor loving Simple cuts, puncture wounds Animal or insect bites Flu, strep or mono Moderate wait time and higher cost then walk-in care, but less expensive than the ER EMERGENCY ROOM [facility] ER For serious or life-threatening problems, such as many of the following, call 911 immediatley: Fast heartbeat (more then 120-150) Allergic reaction with breathing difficulty Broken bones visible through the skin Fainting or unresponsiveness Severe breathing difficulty Poisoning or drug overdose Difficulty speaking Chest pain Drowning Choking Severe loving Concussion Extremely hot or cold New severe headaches Sudden intense severe pain Sudden blindness/vision Heavy bleeding Longer wait time and most expensive option, with average co-pays of $250 or more documented in this encounter Plan of Treatment Upcoming Encounters Date Type Department Care Team (Late st Contact Info) Description 02/25/2025 1:40 PM CDT Office Visit [facility] [address] [place] [address] Brittany Wilkerson MD [address] [place] [phone] Scheduled Referrals Name Type Priority Associated Diagnoses Orde r Schedule AMB REFERRAL TO PAIN CLINIC Outpatient Referral Routine Cervical radiculopathy Lumbar radiculopathy Ordered: 02/07/2025 documented as of this encounter Visit Diagnoses Diagnosis Cervical radiculopathy- Primary Brachial neuritis or radiculitis nos Lumbar radiculopathy Thoracic or lumbosacral neuritis or radiculitis, unspecified documented in this encounter
--- OUTSIDE RECORDS SUMMARY | 2025-02-07 11:30 | XMS_ITS | Encounter Summary ---
Author Organization [facility] Address [address] [place] [address] Care Team Providers Care School Library Media Specialist Name Role Phone Unavailable Primary Care Provider Unavailabl e Encounter Details Date Type Department Care Team (Latest Contact Info) Description 02/07/2025 11:30 AM CDT Ancillary Procedure [facility] Orthopedics - Orthopedic [facility] [address] [place] [address] Vish Be FNP [address] [place] [address] Chronic pain of both shoulders Social History Tobacco Use Types Packs/Day Years Used Date Smoking Tobacco: Never Assessed Comments Unknown Sex and Gender Information Value Date Recorded Sex Assigned at Not on file 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 Gender Identity Not on file Sexual Orientation Not on file documented as of this encounter Plan of Treatment Upcoming Encounters Date Type Department Care Team (Late st Contact Info) Description 02/25/2025 1:40 PM CDT Office Visit [facility] [address] [place] [address] Brittany Wilkerson MD [address] [place] [phone] documented as of this encounter Procedures Procedure Name Priority Date/Time Associated Diagnosis Comments XR SHOULDER 2+ VW LEFT Routine 02/07/2025 11:44 AM CDT Chronic pain of both shoulders documented in this encounter Results * XR SHOULDER 2+ VW LEFT (02/07/2025 11:44 AM CDT) Anatomical Region Laterality Modality Upper Extremity Computed Radiogr aphy Narrative 02/09/2025 10:[address] Parsons and I personally reviewed and interpreted the shoulder left radiographs from February 07, 2025: No os acromiale. No acute dislocations or fractures noted. There is mild glenohumeral and AC joint changes. Vish Be BLOW MOLDER DIAGNOSTIC IMAGING ORD ERABLES Final Result documented in this encounter Visit Diagnoses Diagnosis Chronic pain of both shoulders Pain in joint, shoulder region documented in this encounter
[2025-02-14 11:02] VITALS: BP 130/86; PULSE 82; TEMP 36.6; O2SAT 99
--- OUTSIDE RECORDS SUMMARY | 2025-02-14 11:02 | XMS_ITS | Clinical Summary ---
Author Organization [facility] Address [address] [place] [address] Care Team Providers Care Director Of Medical Staff Services Name Role Phone Unavailable Primary Care Provider Unavailabl e Allergies Active Allergy Reactions Criticality Noted Date Comments Amoxicillin Unknown 11/08/2022 Amoxicillin-Pot Clavulanate Unknown 11/09/19 23 Ddavp (Refrigerated) Unknown 11/08/2022 Medications ALBUTEROL SULFATE INHALATION Take by inhalation. Active citalopram (CeleXA) 20 mg tablet Take 20 mg by mouth daily at bedtime. Active fluticasone propionate (FLONASE) 50 mcg/spray [place], Suspension nasal inhaler Administer 2 Sprays in each nostril daily. Active hydrOXYzine HCL (ATARAX) 25 mg tablet Take 25 mg by mouth 3 times daily as needed for Itching. Active levocetirizine (XYZAL) 5 mg tablet Take 5 mg by mouth late in the day. Active meloxicam (MOBIC) 15 mg tablet Take 15 mg by mouth daily. Active montelukast sodium (MONTELUKAST ORAL) Take by mouth. Activ e omeprazole (PriLOSEC) 40 mg Capsule, Delayed Release(E.C.) Take 40 mg by mouth daily. Active QUEtiapine (SEROquel) 50 mg tablet Take 50 mg by mouth 2 times daily. Active azelastine (ASTELIN) 137 mcg/actuation nasal spray Use 2 spray(s) in each nostril once daily 30 mL 4 Active Active Problems No known active problems Encounters Date Type Department Care Team Description 02/07/2025 11:30 AM CDT Ancillary Procedure [facility] Orthopedic [facility] [address] [place] [phone] Vish Be FNP Chronic pain of both shoulders 02/07/2025 9:00 AM CDT Office Visit [id number] [place] [address] Vish Be FNP Cervical radiculopathy (Primary Dx); Lumbar radiculopathy 01/23/2025 External Device Data [facility] ABSTRACTION Provider, Abstract 01/22/2025 External Device Data [facility] ABSTRACTION Provider, Abstract 01/17/2025 Telephone [id number] [facility] [place] [phone] Vish Be FNP General from Last 3 Months Social History Tobacco Use Types Packs/Day Years Used Date Smoking Tobacco: Never Assessed Comments Unknown Sex and Gender Information Value Date Recorded Sex Assigned at Not on file 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 Gender Identity Not on file Sexual Orientation Not on file Last Filed Vital Signs Vital Sign Reading Time Taken Comments Blood Pressure 132/86 02/07/2025 12:20 PM CDT Pulse - - Temperature - - Respiratory Rate - - Oxygen Saturation - - Inhaled Oxygen Concentration - - Weight 158.8 kg (350 lb) 02/07/2025 12:20 PM CDT Height 180.3 cm (5' 11 ) 02/07/2025 12:20 PM CDT Body Mass Index 48.82 02/07/2025 12:20 PM CDT Plan of Treatment Upcoming Encounters Date Type Department Care Team (Late st Contact Info) Description 02/25/2025 1:40 PM CDT Office Visit [facility] Pain Management [address] [place] [address] Brittany Wilkerson MD [address] [place] [phone] Health Maintenance Due Date Last Done Comments HPV VACCINES (1 - 3-dose series) 2013 DTAP/TDAP/TD VACCINES (1 - Tdap) 2017 Preventative Visit-Managed Medicaid 2017 CERVICAL CANCER SCREENING 09/08/2019 HPV/Cotest (21-29) 09/08/2019 PAP SMEAR 09/08/2019 INFLUENZA VACCINE (#1) 2024 COVID-19 Vaccine ( season) 2025, 12/28/2021 HEPATITIS B VACCINES Completed 04/08/1999, 1998, 1998 Procedures Procedure Name Priority Date/Time Associated Diagnosis Comments XR SHOULDER 2+ VW LEFT Routine 02/07/2025 11:44 AM CDT Chronic pain of both shoulders from Last 3 Months Results * XR SHOULDER 2+ VW LEFT (02/07/2025 11:44 AM CDT) Anatomical Region Laterality Modality Upper Extremity Computed Radiogr aphy Narrative 02/09/2025 10:[address] Parsons and I personally reviewed and interpreted the shoulder left radiographs from February 07, 2025: No os acromiale. No acute dislocations or fractures noted. There is mild glenohumeral and AC joint changes. Vish Be PRINCIPAL QUALITY ENGINEER DIAGNOSTIC IMAGING ORD ERABLES Final Result from Last 3 Months Insurance
[2025-02-14 11:12] VITALS: O2SAT 99
--- NOTE | 2025-02-14 11:14 | CT_ITS ---
WS: [id number] CT LEFT ANKLE, NONCONTRAST HISTORY: hx tendon repair 2022, inversion injury yest Technique: All CT scans at [facility] use at least one of these dose optimization techniques: automated exposure control; mA and/or kV adjustment per patient size (includes targeted exams where dose is matched to clinical indication); or iterative reconstruction. DLP: 130.00 mGy.cm COMPARISON: 02/13/2025 Nondisplaced tiny avulsion fracture from the distal LEFT fibular tip. Moderate amount of adjacent soft tissue edema along the lateral malleolus. No additional fractures are identified. Ankle mortise is intact with no osteochondral lesions. Moderate size calcaneal spur. There is some increased fluid and mild heterogeneity in the peroneal tendon sheath closely associated with the fracture. Proximal and distal to the fracture site the tendon and tendon sheath are unremarkable by CT. CT/CT ankle LT wo con* [id number] IMPRESSION: 1. Nondisplaced acute fibular tip fracture. 2. Corresponding soft tissue edema at the level of the medial malleolus. 3. Increased fluid and heterogeneity within the peroneal tendon sheath at the fracture site. MRI ankle may be of benefit if symptoms do not improve over time as expected for healing fracture.
[2025-02-14 11:19] VITALS: RESP 18
[2025-02-14] MEDS: oxyCODONE-APAP 5-325 mg Tablet 1 TAB PO (11:19)
--- NOTE | 2025-02-14 11:21 | ED_ITS ---
HPI - Extremity Problem General: Chief complaint: Extremity Injury, Lower Stated complaint: L foot painful can't put weight on it Time Seen by Provider: 02/14/25 11:00 History of Present Illness: 24-year-old female presenting the emerge ncy department with left ankle pain, fell when she missed a step going downstairs yesterday, pain to the lateral malleolus, history of tendon repair 2022 to that region, x-rays negative yesterday, unable to bear weight today with pain worse than it was yesterday despite taking Tylenol and Motrin. No other injuries Related Data Previous Rx's ?Medication ?Instructions ?Recorded azelastine 137 mcg (0.1 %) nasal 137 mcg (0.137 mL) in tranasal 02/14/24 spray DAILY #30 mL hydroxyzine HCl 25 mg tablet 25 mg PO QID PRN itching #30 tabs 02/14/24 albuterol sulfate 90 mcg/actuation 2 puff inhalation Q 6H PRN 06/04/24 aerosol inhaler (Ventolin HFA) shortness of breath or wheezing #6.7 grams loratadine 10 mg tablet 10 mg PO DAILY PRN allergic 06/04/24 symptoms #90 tabs montelukast 10 mg tablet 10 mg PO DAILY #90 tabs 11/21 (Singulair) budesonide-formoterol HFA 80 2 puff inhalation BID #10 .2 grams 09/07/24 mcg-4.5 mcg/actuation aerosol inhaler (Symbicort) pantoprazole 40 mg tablet,delayed 40 mg PO BID PRN aci d reflux #60 09/07/24 release tabs cyclobenzaprine 10 mg tablet 10 mg PO QID muscle spasm 1 month 01/23/25 #112 tabs meloxicam 15 mg tablet 15 mg PO DAILY PRN pain #30 tabs 01/24/25 tirzepatide (weight loss) 5 mg/0.5 5 mg (0.5 mL) SUBCU T .qwk #2 mL 01/24/25 mL subcutaneous pen injector (Zepbound) docusate sodium 100 mg capsule 100 mg PO BID #60 caps 02/13/25 oxycodone-acetaminophen 5 mg-325 1 tab PO Q6H PRN pain 3 days #12 02/14/25 mg tablet (Percocet) tabs Allergies Allergy/AdvReac Type Severity Reaction Status Date / Time doxycycline Allergy Intermediate ADR-Gastrointestinal Verified 02/14/25 11:07 Upset topiramate (From Topamax) Allergy Intermediate ADR-Anxiety Verified 02/14/25 11:07 amoxicillin (From Augmentin) Allergy ALGY-Hives Verified 02/14/25 11:07 clavulanic acid (From Allergy ALGY-Hives Verified 02/14/25 11:07 Augmentin) clindamycin Allergy ALGY-Hives Verified 02/14/25 11:07 PFSH ED PFSH: Medical History Chronic midline low back pain with bilateral sciatica GERD (gastroesophageal reflux disease) Mild intermittent asthma Moderate major depression Morbid obesity with BMI of 45.0-49.9, adult Allergic rhinitis Chronic neck pain High risk medication use Migraines ADHD Surgical History [place] teeth removed History of ankle surgery left History of nasal surgery Sinus surgery - done by Patricia Family History Family/Other Diabetes Other Cancer Denies family history of CAD (coronary artery disease) Clotting disorder Dementia Hyperlipidemia Psychiatric illness Chronic kidney disease (CKD) Anesthesia complication Bleeding disorder Lung disease Hypertension Stroke Social History Smoking and tobacco/nicotine status: never used tobacco/nicotine Alcohol intake: never Substance/Drug Use: never Lives independently: Yes Household members: other Details: sister and niece Marital status: Single Number of children: 0 Highest education level completed: Some College, No Degree Current occupational status: unemployed Angelina/[employer]: [employer] Special angelina needs: No Agree to transfusion: Yes Female Reproductive History: Spontaneous abortions: No Physical Exam Narrative: EXAM NARRATIVE: Gen: A&Ox4, no acute distress, nontoxic appearing HEENT: Normocephalic, atraumatic, no scleral icterus, external ears normal, moist mucous membranes Neck: Supple, full range of motion, no observable masses Lungs: No Respiratory distress, Lungs clear to auscultation bilaterally no rales, rhonchi, wheezing CV: Regular rate and rhythm, no murmur, no pitting edema to lower extremities bilaterally Abdomen: Soft, nondistended, nontender to palpation MSK: Pain and tenderness to palpation and swelling to the lateral malleolus, no open wounds, no open fracture, no obvious deformity, decreased range of motion to the left ankle, no tenderness palpation of the base of the fifth metatarsal Skin: No rashes, petechiae, lesions. Normal color per patient. Neuro: Alert and oriented, no slurred speech, sensation and strength grossly intact all 4 extremities Psych: Appropriate for situation. Course Reevaluation(s): Reevaluation #1: CT performed was consistent with suspected Jaimes a distal fibular tip avulsion fracture which I saw on x-ray, there is also some abnormal signal around the peroneal tendon possibly postsurgical versus new injury, this is a nonsurgical fracture, will place in cam boot, weightbearing as tolerated with weight offloading and crutch use until symptoms improve, pain control continue Tylenol Motrin with addition of Percocet for breakthrough pain, follow-up podiatry next week Time: 12:42 Vital Signs: Vital signs: Vital Signs Temperature 97.9 F 02/14/25 11:02 Pulse Rate 82 02/14/25 11:02 Respiratory Rate 18 02/14/25 11:19 Blood Pressure 130/86 02/14/25 11:02 Pulse Oximetry 99 02/14/25 11:12 Oxygen Delivery Me thod Room Air 02/14/25 11:12 MDM - Extremity (Nontraumatic) Medical Decision Making 24-year-old female present emergency department with severe left ankle sprain, negative x-rays yesterday, I did review x-rays myself and I see a possible subtle tip avulsion lucency at the base of the lateral malleolus, will obtain CT ankle to assess for occult fracture, crutches, pain control, anticipate discharge with podiatry follow-up next week as already scheduled. Lab Data Radiology Impressions Ankle CT 02/14/25 11:14 IMPRESSION: 1. Nondisplaced acute fibular tip fracture. 2. Corresponding soft tissue edema at the level of the medial malleolus. 3. Increased fluid and heterogeneity within the peroneal tendon sheath at the fracture site. MRI ankle may be of benefit if symptoms do not improve over time as expected for healing fracture. Laboratory Results HCG, Qual Negative (Negative) 02/14/25 11:30 All radiology interpretation(s) finalized by discharge ED provider radiology interpretation(s): CT ankle confirming Jaimes a distal fibular tip avulsion fracture Discharge Plan Discharge Patient Disposition: Home Clinical Impression: Closed left fibular fracture Condition: Stable Prescriptions: New oxycodone-acetaminophen [Percocet] 5-325 mg tablet 1 tab PO Q6H PRN (Reason: pain) 3 Days Qty: 12 0RF No Action azelastine 137 mcg (0.1 %) spray,non-aerosol 137 mcg intranasal DAILY Qty: 30 3RF hydroxyzine HCl 25 mg tablet 25 mg PO QID PRN (Reason: itching) Qty: 30 2RF Zepbound 5 mg/0.5 mL pen injector 5 mg SUBCUT .qwk Qty: 2 1RF meloxicam 15 mg tablet 15 mg PO DAILY PRN (Reason: pain) Qty: 30 0RF Rx Instructions: start 08/14/2024 loratadine 10 mg tablet 10 mg PO DAILY PRN (Reason: allergic symptoms) Qty: 90 1RF montelukast [Singulair] 10 mg tablet 10 mg PO DAILY Qty: 90 1RF albuterol sulfate [Ventolin HFA] 90 mcg/actuation HFA aerosol inhaler 2 puff inhalation Q6H PRN (Reason: shortness of breath or wheezing) Qty: 6.7 0RF pantoprazole 40 mg tablet,delayed release (DR/EC) 40 mg PO BID PRN (Reason: acid reflux) Qty: 60 0RF budesonide-formoterol [Symbicort] 80-4.5 mcg/actuation HFA aerosol inhaler 2 puff inhalation BID Qty: 10.2 0RF cyclobenzaprine 10 mg tablet 10 mg PO QID 30 Days Qty: 112 0RF docusate sodium 100 mg capsule 100 mg PO BID Qty: 60 5RF Discharge Orders: Discharge ED (Routine); Ordered 02/14/25 Ordered By: Ryan Graham Other Ambulatory Orders: DME: Miscellaneous (WELLNESS COORDINATOR) Timeframe: [id number] Location: None Selected Ordered By: Ryan Graham Referrals: Barbi Goldman MD [Primary Care Provider, Family Practice] Patient Instructions: Opioid Safety, Pain Management, Patient Portal & Jaden Instructions, Ankle Fracture (DC) Activity Restrictions/Additional Instructions: Follow-up with the podiatry next week as previously scheduled to assess healing and discuss next options. Print Language: Spanish Coding Level of Care Code ED Manager Of Creative Services for Sanjeev Lobo
[2025-02-14 11:38] LABS: HCG Qualitative Urine. Negative (Negative)
== END 2025-02-14 12:56 | disposition home or self-care (01) ==
PROVIDERS: Emergency Provider Student in an Organized Health Care Education/Training Program; PCP Family Medicine
DX: S82.402A Unspecified fracture of shaft of left fibula, initial encounter for closed fracture (principal); W10.9XXA Fall (on) (from) unspecified stairs and steps, initial encounter
CPT/HCPCS: 73700; 81025; 99284; J9999

== ENCOUNTER → 2025-02-28 13:51 | Outpatient (BNVA) | payer MEDICAID, SELFPAY | PROVIDERS: PCP Family Medicine; Visit Provider Podiatrist Foot & Ankle Surgery | DX: S82.832A Other fracture of upper and lower end of left fibula, initial encounter for closed fracture (principal); X58.XXXA Exposure to other specified factors, initial encounter; M25.572 Pain in left ankle and joints of left foot; M76.72 Peroneal tendinitis, left leg | CPT/HCPCS: 73610 ==

== ENCOUNTER 2025-04-26 07:52 | Outpatient (CLI) | payer MEDICAID, SELFPAY ==
--- NOTE | 2025-04-26 08:00 | MR_ITS ---
WS: [id number] MRI HEAD WITHOUT CONTRAST TECHNIQUE: Sagittal T1, T2 axial, T2 axial FLAIR, axial and coronal T1 images, axial susceptibility weighted imaging, axial diffusion weighted images, and coronal T2 images were obtained. CLINICAL INFORMATION: paresthesias all extremities; needs MS ruled out COMPARISON: None. FINDINGS: No evidence of restricted diffusion to suggest acute ischemia. No hydrocephalus. Ventricular system and basilar cisterns are patent. No suspicious intracranial signal abnormalities. Normal corpus callosum. No callosal atrophy. Normal posterior fossa. Normal vascular flow voids at the skull base. No extra-axial fluid collections. Paranasal sinuses are well aerated with retention cysts in the maxillary sinuses. Mastoid air cells are well aerated. Small retention cyst or Tornwaldt cyst in the posterior nasopharynx. Normal optic chiasm and pituitary infundibulum. Normal temporal lobes. MR/MR head wo con* [id number] IMPRESSION: 1. No evidence of restricted diffusion to suggest acute ischemia. 2. No suspicious intracranial signal abnormalities. Normal goodwin-white differen tiation. No demyelinating lesions. 3. Corpus callosum is normal in appearance. No pericallosal lesions or callosa l atrophy. 4. No hemosiderin on susceptibility-weighted images. 5. No other suspicious findings.
== END 2025-04-26 07:53 | disposition home or self-care (01) ==
LOC: RAD 07:52
PROVIDERS: PCP Family Medicine; Visit Provider Family Medicine
DX: R20.2 Paresthesia of skin (principal); M79.609 Pain in unspecified limb; R51.9 Headache, unspecified; G89.29 Other chronic pain; J34.1 Cyst and mucocele of nose and nasal sinus
CPT/HCPCS: 70551

== ENCOUNTER → 2025-05-07 09:13 | Outpatient (BNVA) | payer MEDICAID, SELFPAY | PROVIDERS: PCP Family Medicine; Visit Provider Physician Assistant | DX: G56.03 Carpal tunnel syndrome, bilateral upper limbs (principal); G56.23 Lesion of ulnar nerve, bilateral upper limbs | CPT/HCPCS: 73130 ==

== ENCOUNTER 2025-05-29 09:16 | Outpatient (CLI) | payer MEDICAID, SELFPAY ==
--- NOTE | 2025-05-29 07:59 | MR_ITS ---
WS: [id number] MRI LEFT ANKLE WITHOUT CONTRAST. COMPARISON: CT 02/14/2025, radiograph 02/28/2025 Multiplanar, multisequence imaging is performed without contrast. Patient has a known fracture involving the distal fibular tip. There is a small amount of edema noted in the distal fibula. There is also a small amount of edema in the posterior medial talar process. Additional focal marrow edema in the distal cuboid. There is a small amount of fluid in the sinus Tarsi. Normal appearance of the Achilles tendon. No significant plantar fasciitis. Thickening and increased T2 signal involving the peroneal tendons and the sheath at the level of the distal fibula. There is a short gap in which the peroneal brevis tendon is not identified as a normal low signal structure. Distally the tendon appears intact and more proximally the tendon appears normal. The peroneus longus tendon is normal size with no gap. Posterior tibialis tendon, the flexor hallucis longus and flexor digitorum longus are normal. Anterior tibialis tendon is normal. Normal interosseous membrane. Deltoid ligament is normal. As visualized the spring ligament is also appropriate. There is some increased T2 signal in the distal spring ligament which can be normal. Anterior inferior and posterior inferior tibiofibular ligaments are intact. Anterior and posterior talofibular ligaments are also intact. There may be very slight sprain of the anterior talofibular ligament as there is some increased signal but there is no tear. Calcaneofibular ligament is intact. MR/MR ankle LT wo con* [id number] IMPRESSION: 1. Marrow edema in the distal fibular tip at the site of a prior fracture. 2. Small amount of marrow edema in the posterior medial talus. 3. Additional marrow edema in the distal cuboid is likely degenerative. 4. Abnormal signal in the peroneal tendon sheath at the level of the distal fi bula. There is a short gap in which the peroneal brevis tendon is not identifie d. The tendon proximally and distally is normal. There is additional increased signal within the tendon sheath from tendinopathy. 5. Very mild sprain involving the ATFL.
== END 2025-05-29 09:17 | disposition home or self-care (01) ==
LOC: RAD 09:17
PROVIDERS: PCP Family Medicine; Visit Provider Podiatrist Foot & Ankle Surgery
DX: S93.492A Sprain of other ligament of left ankle, initial encounter (principal); X58.XXXA Exposure to other specified factors, initial encounter
CPT/HCPCS: 73721